=== PATIENT | female | born 2000 | race Caucasian/White ===

== ENCOUNTER 2018-10-14 16:52 | Emergency (ER) | payer MEDICAID ==
[2018-10-14 17:02] VITALS: BP 121/81
[2018-10-14] MEDS ORDERED: HYDROcodone/ACETAMIN 5-325 MG* 1 TAB PO ONE (17:15)
--- NOTE | 2018-10-14 17:18 | UC ---
Abdominal Pain Female HPI - HPI Summary HPI Summary: 17 yo female presents with left flank pain. She tells me that she has had left flank pain for years and that "noone ever found out why". She sees [facility] in [place], [place]. She tells me that she had a CT scan about a month ago and last week went to her PCP for results and was told that she has a 2.0cm cyst on her left kidney. Pt was told that this is the cause of her chronic discomfort. Pt reports that as a child she had kidney stones, but hasn't in many years. No personal hx or fam hx of PCKD. Over the last 2-3 days she has been having increasing pain in her left flank. Today she has a decreased appetite and vomited twice. She has taken 400mg ibuprofen, which usually helps her pain, but it has not today. She denies fever, chills, SOB, chest pain, abdominal pain, diarrhea, dysuria, hematuria, or vaginal complaints. She is currently on her period. She states that this does not feel the same as kidney stones she has had in the past. - History of Current Complaint Chief Complaint: UCGU Stated Complaint: ABD PAIN Time Seen by Provider: 10/14/18 17:07 Hx Obtained From: Patient Hx Last Menstrual Period: [id number] Onset/Duration: Gradual Onset Severity Initially: Moderate Severity Currently: Severe Pain Intensity: 8 Pain Scale Used: 0-10 Numeric Radiates to: Flank Allergies/Adverse Reactions: Allergies Allergy/AdvReac Type Severity Reaction Status Date / Time No Known Allergies Allergy Verified 10/14/18 17:03 Home Medications: Home Medications Ibuprofen TAB* [Motrin TAB* 400 MG] 400 mg PO Q6H PRN 10/14/18 [History Confirmed 10/14/18] Loratadine [Claritin 10 MG CAP] 10 mg PO DAILY 10/14/18 [History Confirmed 10/14] Omeprazole 40 mg PO DAILY 10/14/18 [History Confirmed 10/14/18] PMH/Surg Hx/FS Hx/Imm Hx GI/ History: Gastroesophageal Reflux - Surgical History Surgical History: None - Family History Known Family History: Positive: None - Social History Lives: With Family Alcohol Use: None Substance Use Type: Marijuana Substance Use Comment - Amount & Last Used: 2x/day Smoking Status (MU): Never Smoked Tobacco Review of Systems All Other Systems Reviewed And Are Negative: Yes Constitutional: Positive: Negative Skin: Positive: Negative Respiratory: Positive: Negative Cardiovascular: Positive: Negative Gastrointestinal: Positive: Negative Genitourinary: Positive: Other - Left flank pain Neurovascular: Positive: Negative Neurological: Positive: Negative Psychological: Positive: Negative Physical Exam - Summary Physical Exam Summary: GENERAL: NAD. WDWN. No pain distress. SKIN: No rashes, sores, lesions, or open wounds. NECK: Supple. Nontender. No lymphadenopathy. CHEST: CTAB. No r/r/w. No accessory muscle use. Breathing comfortably and in no distress. CV: RRR. Without m/r/g. Pulses intact. Cap refill <2seconds ABDOMEN: LEFT CVA TTP. Soft. NTTP. No distention or guarding. Bowel sounds present NEURO: Alert. PSYCH: Age appropriate behavior. Triage Information Reviewed: Yes Vital Signs: Initial Vital Signs Temp 98.8 F 10/14/18 16:57 Pulse 91 10/14/18 16:57 Resp 16 10/14/18 16:57 BP 121/81 10/14/18 16:57 Pulse Ox 99 10/14/18 16:57 Laboratory Tests 10/14/18 17:23 POC Urine Color Yellow POC Urine Clarity Clear POC Urine pH 5.5 POC Ur Specif [place] 1.025 POC Urine Protein Trace A POC Ur Glucose (UA) Negative POC Urine Ketones Negative POC Urine Blood 3+ A POC Urine Nitrite Negative POC Urine Bilirubin Negative POC Urine Urobilinogen 0.2 POC U Leukocyte Esteras Negative Vital Signs Reviewed: Yes Abd Pain Female Course/Dx - Course Course Of Treatment: UA with 3+ blood and trace protein. Pt currently on her period. Pt tells me that she has had 3 CTs in her teenage life thus far, therefore I am very hesitant to order another CT for her today and feel this can be appropriately evaluated with an ultrasound. I am unsure the cause of her pain that she attributes to a renal cyst and have no access to the CT report that she had a month or so ago. Her pain is the worst it has ever been and she has never had vomiting associated with her discomfort in the past. The does not have ultrasound available today. For these reasons I advised pt to be further evaluated in the ED. I suspect she will benefit from a kidney US as well as labwork to assess for kidney function. - Differential Dx/Diagnosis Provider Diagnosis: Flank pain, Vomiting Discharge - Sign-Out/Discharge Documenting (check all that apply): Patient Departure All imaging exams completed and their final reports reviewed: No Studies - Discharge Plan Condition: Stable Disposition: HOME-RECOMMEND TO ED Referrals: No Primary Care Phys,NOPCP [Primary Care Provider] - Additional Instructions: Please go to the ER for further evaluation of your flank pain. You were given [place] in the urgent care for your pain. Your urine results did not show any sign of infection. - Billing Disposition and Condition Condition: STABLE Disposition: Home-Recommend to ED
== END 2018-10-14 17:35 | disposition home health service (06) ==
LOC: UCEAST 16:52
DX: R10.9 Unspecified abdominal pain (principal); R11.10 Vomiting, unspecified; K21.9 Gastro-esophageal reflux disease without esophagitis; Z87.442 Personal history of urinary calculi; Z79.899 Other long term (current) drug therapy
CPT/HCPCS: 81003; 84702; 99202; G0463

== ENCOUNTER 2018-10-14 17:53 | Emergency (ER) | payer MEDICAID ==
[2018-10-14 19:54] LABS: ABS Basophils 0.1 10^3/ul (0-0.2); ABS Eosinophils 0.2 10^3/ul (0-0.6); ABS Lymphocytes 3.1 10^3/ul (1.0-4.8); ABS Monocytes 0.7 10^3/ul (0-0.8); ABS Neutrophils 4.2 10^3/ul (1.5-7.7); ABS Nucleated RBC 0 10^3/ul; Eosinophil % 1.9 %; Hematocrit 37 % (33-41); Hemoglobin 12.2 g/dL (12.0-16.0); Mean Corpuscular HGB Conc 33 g/dL (31-36); Mean Corpuscular Hemoglobin 28 pg (27-31); Mean Corpuscular Volume 84 fL (80-97); Mean Platelet Volume 8.3 fL (7.4-10.4); Nucleated Red Blood Cells % 0; Platelet Count 226 10^3/uL (150-450); Red Blood Count 4.34 10^6 /uL (3.70-4.87); Red Cell Distribution Width 14 % (10.5-15); White Blood Count 8.2 10^3/uL (3.5-10.8)
[2018-10-14 20:23] LABS: BUN/Creatinine Ratio 13.8 (8-20); Calcium 8.6 mg/dL (8.6-10.3); EGFR African American 111.8 (>60); EGFR Non-African American 92.4 (>60); Potassium 3.9 mmol/L (3.5-5.0)
[2018-10-14] MEDS ORDERED: Ketorolac INJ* 30 MG/ML 1 ML VIAL IM ONE (20:42)
--- NOTE | 2018-10-14 21:08 | ED ---
GI/ HPI - HPI Summary HPI Summary: 17-year-old female presents with flank pain for the past week. She states she' s has had this pain intermittent for the past year. She states she just found out she has a renal cyst on that side. She denies any family history of renal disease or PCKD. She states that she is currently on her period so can not tell is blood is in her urine. She denies any urgency frequency or dysuria. She has history of kidney stones states that it feels different. Pain does not radiate anywhere. She denies any injury. No chest pain or shortness of breath. No cough. She is not on control. She is a smoker. Denies any pain or swelling in calf muscles. - History of Current Complaint Chief Complaint: EDFlankPain Time Seen by Provider: 10/14/18 20:28 Stated Complaint: CYST ON LEFT KIDNEY IN PAIN PER PT Hx Last Menstrual Period: [id number] Pain Intensity: 8 - Allergy/Home Medications Allergies/Adverse Reactions: Allergies Allergy/AdvReac Type Severity Reaction Status Date / Time No Known Allergies Allergy Verified 10/14/18 18:14 Home Medications: Home Medications Venlafaxine HCl [Effexor XR-] 37.5 mg PO DAILY 10/14/18 [History Confirmed 10/14] PMH/Surg Hx/FS Hx/Imm Hx Endocrine/Hematology History: Denies: Hx Anticoagulant Therapy Respiratory History: Denies: Hx Asthma Infectious Disease History: No Infectious Disease History: Denies: Traveled Outside the [place] in Last 30 Days - Family History Known Family History: Positive: None Negative: Renal Disease - Social History Alcohol Use: None Substance Use Type: Reports: Marijuana Substance Use Comment - Amount & Last Used: 2x/day Smoking Status (MU): Light Every Day Tobacco Smoker Review of Systems Negative: Fever Negative: Chest Pain Negative: Shortness Of Breath Positive: Nausea. Negative: Abdominal Pain, Vomiting, Diarrhea Positive: flank pain. Negative: dysuria All Other Systems Reviewed And Are Negative: Yes Physical Exam Triage Information Reviewed: Yes Vital Signs On Initial Exam: Initial Vitals Temp Pulse Resp BP Pulse Ox 98.5 F 79 16 146/71 98 10/14/18 18:09 10/14/18 18:09 10/14/18 18:09 10/14/18 18:09 10/14/18 18:09 Vital Signs Reviewed: Yes Appearance: Positive: Well-Appearing Skin: Positive: Warm, Dry Head/Face: Positive: Normal Head/Face Inspection Eyes: Positive: Normal, Conjunctiva Clear ENT: Positive: Pharynx normal Respiratory/Lung Sounds: Positive: Clear to Auscultation, Breath Sounds Present Cardiovascular: Positive: Normal, RRR Abdomen Description: Positive: Soft, CVA Tenderness (L). Negative: CVA Tenderness (R) Bowel Sounds: Positive: Present Musculoskeletal: Positive: Normal Neurological: Positive: Normal Psychiatric: Positive: Normal Diagnostics - Vital Signs Vital Signs Temp Pulse Resp BP Pulse Ox 10/14/18 18:09 98.5 F 79 16 146/71 98 - Laboratory Lab Results: Lab Results 10/14/18 10/14/18 Range/Units 19:47 19:47 WBC 8.2 (3.5-10.8) 10^3/uL RBC 4.34 (3.70-4.87) 10^6 /uL Hgb 12.2 (12.0-16.0) g/dL Hct 37 (33-41) % MCV 84 (80-97) fL MCH 28 (27-31) pg MCHC 33 (31-36) g/dL RDW 14 (10.5-15) % Plt Count 226 (150-450) 10^3/uL MPV 8.3 (7.4-10.4) fL Neut % (Auto) 50.6 % Lymph % (Auto) 38.0 % [place] % (Auto) 8.8 % Eos % (Auto) 1.9 % Baso % (Auto) 0.7 % Absolute Neuts (auto) 4.2 (1.5-7.7) 10^3/ul Absolute Lymphs (auto) 3.1 (1.0-4.8) 10^3/ul Absolute Monos (auto) 0.7 (0-0.8) 10^3/ul Absolute Eos (auto) 0.2 (0-0.6) 10^3/ul Absolute Basos (auto) 0.1 (0-0.2) 10^3/ul Absolute Nucleated RBC 0 10^3/ul Nucleated RBC % 0 Sodium 139 (135-145) mmol/L Potassium 3.9 (3.5-5.0) mmol/L Chloride 110 (101-111) mmol/L Carbon Dioxide 25 (22-32) mmol/L Anion Gap 4 (2-11) mmol/L BUN 11 (6-24) mg/dL Creatinine 0.80 (0.51-0.95) mg/dL Est GFR ( Amer) 111.8 (>60) Est GFR (Non-Af Amer) 92.4 (>60) BUN/Creatinine Ratio 13.8 (8-20) Glucose 95 (70-100) mg/dL Calcium 8.6 (8.6-10.3) mg/dL Result Diagrams: 10/14/18 19:47 10/14/18 19:47 Lab Statement: Any lab studies that have been ordered have been reviewed, and results considered in the medical decision making process. - Ultrasound No standard instances Ultrasound Interpretation Completed By: Radiologist Summary of Ultrasound Findings: IMPRESSION: No stones or hydronephrosis of left kidney. Small simple cyst noted. Re-Evaluation - Re-Evaluation First Eval Re-Evaluation Time: 22:08 Change: Improved Comment: feeling better after toradol GIGU Course/Dx - Course Course Of Treatment: 17-year-old female presents with flank pain for the past week. She states she's has had this pain intermittent for the past year. She states she just found out she has a renal cyst on that side. She denies any family history of renal disease or PCKD. She states that she is currently on her period so can not tell is blood is in her urine. She denies any urgency frequency or dysuria. She has history of kidney stones states that it feels different. Pain does not radiate anywhere. She denies any injury. No chest pain or shortness of breath. No cough. She is not on control. She is a smoker. Denies any pain or swelling in calf muscles. On exam tenderness over left flank. Lungs clear auscultation. wbc normal. Renal function normal. Urine likely contaminant. Renal ultrasound shows small simple cyst. Patient primary referring to a specialist and she is waiting for the specialist to call back so can follow up with them. told to take tyenlol or ibuprofen. patient understand and agrees with plan. - Diagnoses Differential Diagnoses - Female: Urinary Tract Infection, Ureteral Calculi, Other - renal cyst Provider Diagnoses: Renal cyst Discharge - Sign-Out/Discharge Documenting (check all that apply): Patient Departure Patient Received Moderate/Deep Sedation with Procedure: No - Discharge Plan Condition: Good Disposition: HOME Patient Education Materials: Kidney Cyst (ED) Referrals: No Primary Care Phys,NOPCP [Primary Care Provider] - Additional Instructions: Follow up with primary Take tyenlol or ibuprofen every 6 hours as needed for pain can apply ice or heat to area Return to ED if develop any fever or any new or worsening symptoms - Billing Disposition and Condition Condition: GOOD Disposition: Home
[2018-10-14 21:46] LABS: Urine Appearance Cloudy; Urine Bacteria Absent (Absent); Urine Bilirubin Negative (Negative); Urine Blood 3+ (Negative); Urine Color Yellow; Urine Glucose Negative (Negative); Urine Ketones Negative (Negative); Urine Nitrite Negative (Negative); Urine Protein Negative (Negative); Urine Red Blood Cell 3+(>10/hpf) (Absent); Urine Specific Gravity 1.023 (1.010-1.030); Urine Squamous Epithelial Cell Present (Absent); Urine Urobilinogen Negative (Negative); Urine White Blood Cell Trace(0-5/hpf) (Absent)
[2018-10-14 22:29] VITALS: BP 128/77
== END 2018-10-14 22:29 | disposition home or self-care (01) ==
LOC: ED 17:53
DX: N28.1 Cyst of kidney, acquired (principal); R11.0 Nausea; Z87.442 Personal history of urinary calculi; F17.200 Nicotine dependence, unspecified, uncomplicated
CPT/HCPCS: 36415; 76775; 80048; 81003; 81015; 85025; 87086; 96372; 99282; J1885

== ENCOUNTER 2018-11-30 13:25 | Emergency (ER) | payer MEDICAID, OTHER ==
[2018-11-30 13:34] VITALS: BP 118/70
[2018-11-30] MEDS ORDERED: Ketorolac INJ* 60 MG/2 ML VIAL IM ONE (13:52)
--- NOTE | 2018-11-30 13:54 | UC ---
Back Pain HPI - HPI Summary HPI Summary: 18 yo female presents with continued left flank pain. I saw her for this same issue about 2 months ago. She went to the ED at that time for a renal US that revealed a simple small kidney cyst. She was given norco and toradol and pain resolved and she felt better for awhile, but the pain is now back. She has not been able to see a video game technician, but has an appointment with one scheduled for next month. Currently she has left flank pain at her left kidney and into left lower back. She denies abdominal pain, n/v, dysuria, hematuria. - History of Current Complaint Chief Complaint: UCGU Stated Complaint: LEFT FLANK PAIN Time Seen by Provider: 11/30/18 13:48 Hx Last Menstrual Period: 11/12/18 Onset/Duration: Gradual Onset Timing: Constant Severity Initially: Moderate Severity Currently: Severe Pain Intensity: 10 Pain Scale Used: 0-10 Numeric - Allergies/Home Medications Allergies/Adverse Reactions: Allergies Allergy/AdvReac Type Severity Reaction Status Date / Time No Known Allergies Allergy Verified 11/30/18 13:35 PMH/Surg Hx/FS Hx/Imm Hx - Additional Past Medical History Additional PMH: Kidney cyst GI/ History: Gastroesophageal Reflux Psychological History: Anxiety, Depression Other History Of: Negative For: Anticoagulant Therapy - Surgical History Surgical History: None - Family History Known Family History: Positive: None Negative: Renal Disease - Social History Occupation: Unemployed Lives: With Family Alcohol Use: None Substance Use Type: Marijuana Substance Use Comment - Amount & Last Used: 2x/day Smoking Status (MU): Light Every Day Tobacco Smoker Review of Systems All Other Systems Reviewed And Are Negative: Yes Constitutional: Positive: Negative Skin: Positive: Negative Respiratory: Positive: Negative Cardiovascular: Positive: Negative Gastrointestinal: Positive: Negative Genitourinary: Positive: Negative Musculoskeletal: Positive: Other: - Left flank pain Neurological: Positive: Negative Psychological: Positive: Negative Physical Exam - Summary Physical Exam Summary: GENERAL: NAD. WDWN. No pain distress. SKIN: No rashes, sores, lesions, or open wounds. NECK: Supple. Nontender. No lymphadenopathy. CHEST: CTAB. No r/r/w. No accessory muscle use. Breathing comfortably and in no distress. CV: RRR. Without m/r/g. Pulses intact. Cap refill <2seconds ABDOMEN: Left CVA TTP. Soft. NTTP. No distention or guarding. Bowel sounds present MSK: Left flank and left lower back mild TTP - reproduced with truncal twisting and flexion of spine. Negative SLR b/l. NEURO: Alert. PSYCH: Age appropriate behavior. Triage Information Reviewed: Yes Vital Signs: Initial Vital Signs Temp 98 F 11/30/18 13:32 Pulse 82 11/30/18 13:32 Resp 16 11/30/18 13:32 BP 118/70 11/30/18 13:32 Pulse Ox 100 11/30/18 13:32 Laboratory Tests 11/30/18 11/30/18 13:43 13:45 POC Urine Color Yellow POC Urine Clarity Clear POC Urine pH 7.0 POC Ur Specif [place] 1.015 POC Urine Protein Negative POC Ur Glucose (UA) Negative POC Urine Ketones Negative POC Urine Blood Negative POC Urine Nitrite Negative POC Urine Bilirubin Negative POC Urine Urobilinogen 0.2 POC U Leukocyte Esteras Negative POC Ur Test Negative Vital Signs Reviewed: Yes Back Pain Course/Dx - Course Course Of Treatment: Discussed with pt that I do not suspect her pain is truly from this simple kidney cyst and seems more MSK in nature. I recommended physical therapy and referral to a spine clinic, but pt prefers to see her video game technician next month as she believes it is kidney related. Therefore, she was given toradol IM in the clinic and will rx for a short supply of norco for use during severe pain episodes. istop: Reference #: [id number] - Differential Dx/Diagnosis Provider Diagnosis: Left flank pain Discharge - Sign-Out/Discharge Documenting (check all that apply): Patient Departure All imaging exams completed and their final reports reviewed: No Studies - Discharge Plan Condition: Stable Disposition: HOME Prescriptions: HYDROcodone/ACETAMIN 5-325 MG* [[place] 5-325 TAB*] 1 tab PO Q8H PRN #9 tab MDD 3 PRN Reason: Pain Patient Education Materials: Flank Pain (ED) Referrals: Ellie Coleman NP [Primary Care Provider] - Additional Instructions: If you develop a fever, shortness of breath, chest pain, new or worsening symptoms - please call your PCP or go to the ED immediately. Please keep your appointment with your specialist for next month for further evaluation of your kidney pain - Billing Disposition and Condition Condition: STABLE Disposition: Home
== END 2018-11-30 14:05 | disposition home or self-care (01) ==
LOC: SUPCPDRO 13:25 → UCEAST 13:25
DX: M54.5 Low back pain (principal); N28.1 Cyst of kidney, acquired; Z32.02 Encounter for pregnancy test, result negative; K21.9 Gastro-esophageal reflux disease without esophagitis; F41.9 Anxiety disorder, unspecified; F32.9 Major depressive disorder, single episode, unspecified; F17.200 Nicotine dependence, unspecified, uncomplicated
CPT/HCPCS: 81003; 84702; 96372; 99212; G0463; J1885

== ENCOUNTER 2019-01-25 18:29 | Emergency (ER) | payer OTHER ==
[2019-01-25 18:45] VITALS: BP 122/76
[2019-01-25] MEDS ORDERED: Lidocaine 2% VISCOUS* 15 ML UDC PO ONE (19:52)
[2019-01-25] MEDS ORDERED: Al Hydrox/Mg Hydrox/Simet LIQ* 30 ML UDC PO ONE (19:53)
--- NOTE | 2019-01-25 20:47 | UC ---
Abdominal Pain Female HPI - HPI Summary HPI Summary: PATIENT COMPLAINING OF 2 WEEKS OF OVERALL FATIGUE. HAS MID ABDOMINAL/ EPIGASTRIC SHARP PAIN WITH INTERMITTENT NAUSEA. DOES HAVE A HISTORY OF SOME REFLUX AND HAS BEEN TAKING OMEPRAZOLE WITHOUT MUCH RELIEF. ALSO COMPLAINS OF BACK PAIN. DENIES ANY URINARY SYMPTOMS. IS NOT CONCERNED ABOUT STD. NO FEVER. - History of Current Complaint Chief Complaint: UCGeneralIllness Stated Complaint: COUGH Time Seen by Provider: 01/25/19 18:47 Hx Obtained From: Patient Hx Last Menstrual Period: [id number] Onset/Duration: Gradual Onset, Lasting Weeks, Still Present Timing: Constant Severity Initially: Moderate Severity Currently: Moderate Pain Intensity: 7 Pain Scale Used: 0-10 Numeric Location: Epigastric Radiates: Yes Radiates to: Back Character: Sharp Aggravating Factor(s): Nothing Alleviating Factor(s): Nothing Associated Signs and Symptoms: Positive: Back Pain, Decreased Appetite, Nausea. Negative: Diaphoresis, Fever, Urinary Symptoms, Vaginal Discharge, Vomiting, Diarrhea Allergies/Adverse Reactions: Allergies Allergy/AdvReac Type Severity Reaction Status Date / Time No Known Allergies Allergy Verified 01/25/19 18:45 PMH/Surg Hx/FS Hx/Imm Hx GI/ History: Gastroesophageal Reflux Other History Of: Negative For: Anticoagulant Therapy - Surgical History Surgical History: None - Family History Known Family History: Positive: None Negative: Renal Disease - Social History Alcohol Use: None Substance Use Type: Marijuana Substance Use Comment - Amount & Last Used: 2x/day Smoking Status (MU): Light Every Day Tobacco Smoker Review of Systems All Other Systems Reviewed And Are Negative: Yes Constitutional: Positive: Fatigue ENT: Positive: Negative Respiratory: Positive: Cough Cardiovascular: Positive: Negative Gastrointestinal: Positive: Abdominal Pain, Nausea Genitourinary: Positive: Negative Physical Exam Triage Information Reviewed: Yes Appearance: Well-Appearing, No Pain Distress, Well-Nourished Vital Signs: Initial Vital Signs Temp 95.7 F 01/25/19 18:39 Pulse 89 01/25/19 18:39 Resp 20 01/25/19 18:39 BP 122/76 01/25/19 18:39 Pulse Ox 98 01/25/19 18:39 Laboratory Tests 01/25/19 01/25/19 19:20 19:25 POC Urine Color Yellow POC Urine Clarity Clear POC Urine pH 7.0 POC Ur Specif [place] 1.020 POC Urine Protein Negative POC Ur Glucose (UA) Negative POC Urine Ketones Negative POC Urine Blood Negative POC Urine Nitrite Negative POC Urine Bilirubin Negative POC Urine Urobilinogen 0.2 POC U Leukocyte Esteras Negative POC Ur Test Negative Vital Signs Reviewed: Yes Eyes: Positive: Conjunctiva Clear ENT: Positive: Hearing grossly normal, Pharynx normal, TMs normal Neck: Positive: Supple, Nontender, No Lymphadenopathy Respiratory Exam: Normal Cardiovascular Exam: Normal Abdomen Description: Positive: Soft, Other: - MILD DIFFUSE TENDERNESS. NO RIGIDITY OR REBOUND. Negative: CVA Tenderness (R), CVA Tenderness (L), Distended, Guarding Bowel Sounds: Positive: Present Musculoskeletal: Positive: No Edema Neurological: Positive: Alert Psychological: Positive: Age Appropriate Behavior Skin: Negative: Rashes Re-Evaluation - Re-Evaluation First Eval Re-Evaluation Time: 20:35 - FEELS IMPROVED AFTER GI COCKTAIL Change: Improved Abd Pain Female Course/Dx - Course Course Of Treatment: URINE DIP AND URINE HCG NEGATIVE. PATIENT FELT BETTER AFTER A GI COCKTAIL. HAVE ADVISED PATIENT TO SWITCH HER PPI TO NEXIUM TO SEE IF THIS IS MORE EFFECTIVE. CALL [facility] FOR A FOLLOW-UP APPOINTMENT. FOLLOW [facility]. LABS DRAWN TODAY INCLUDED CBC, CMP, TSH, LIPASE. - Differential Dx/Diagnosis Provider Diagnosis: Gastritis Discharge - Sign-Out/Discharge Documenting (check all that apply): Patient Departure All imaging exams completed and their final reports reviewed: No Studies - Discharge Plan Condition: Stable Disposition: HOME Prescriptions: Esomeprazole(NF) [NexIUM(NF)] 40 mg PO DAILY #30 cap Patient Education Materials: Gastritis (ED) Referrals: [facility] [Outside] - 1 Week Ellie Coleman NP [Primary Care Provider] - 1 Week Additional Instructions: YOU FELT BETTER AFTER A GI COCKTAIL. THIS INDICATES THE YOUR SYMPTOMS MAY BE DUE TO A GASTRITIS/REFLUX. TRY CHANGING YOUR PPI FROM PRILOSEC TO NEXIUM. TAKE THE MEDICINE IN THE MORNING (IDEALLY AT LEAST 30 MINUTES BEFORE YOU EAT). EAT SLOWLY. STAY UPRIGHT AT LEAST 30 MINUTES AFTER EATING. EAT SMALLER, MORE FREQUENT MEALS OPPOSED TO LARGE INFREQUENT MEALS. AVOID POSSIBLE TRIGGER FOODSGREASY, SPICY, ACIDIC FOODS. CAFFEINE, ALCOHOL. CALL GI TOMORROW TO SCHEDULE FOLLOW-UP APPOINTMENT FOR FURTHER EVALUATION. [facility] Address: [address], [place] [address] URINE TESTING TODAY UNREMARKABLE. BLOOD DRAWN TO EVALUATE YOUR BLOOD COUNT, METABOLIC PANEL AND THYROID. WE WILL CALL YOU WITH ANY ABNORMAL RESULTS. CALL THE NUMBER BELOW FOR ASSISTANCE IN ESTABLISHING WITH A PCP An additional resource available to assist in finding the appropriate physician for your health care needs is the [facility] ([facility]). You may contact them by calling [phone]. - Billing Disposition and Condition Condition: STABLE Disposition: Home
[2019-01-26 11:36] LABS: ABS Basophils 0.1 10^3/ul (0-0.2); ABS Eosinophils 0.1 10^3/ul (0-0.6); ABS Lymphocytes 3.2 10^3/ul (1.0-4.8); ABS Monocytes 0.8 10^3/ul (0-0.8); Eosinophil % 1.3 %; Hematocrit 41 % (35-47); Hemoglobin 13.8 g/dL (12.0-16.0); Lymphocyte % 31.2 %; Mean Corpuscular HGB Conc 34 g/dL (31-36); Mean Corpuscular Hemoglobin 28 pg (27-31); Mean Corpuscular Volume 84 fL (80-97); Mean Platelet Volume 9.4 fL (7.4-10.4); Nucleated Red Blood Cells % 0.1; Platelet Count 296 10^3/uL (150-450); Red Blood Count 4.86 10^6 /uL (3.70-4.87); Red Cell Distribution Width 14 % (10-15); White Blood Count 10.2 10^3/uL (3.5-10.8)
[2019-01-26 19:29] LABS: Albumin 4.2 g/dL (3.2-5.2); Calcium 9.4 mg/dL (8.6-10.3); Potassium 3.9 mmol/L (3.5-5.0); Total Bilirubin 0.2 mg/dL (0.2-1.0)
[2019-01-26 19:35] LABS: Albumin/Globulin Ratio 1.6 (1-3); BUN/Creatinine Ratio 17.1 (8-20); EGFR African American 117.4 (>60); Globulin 2.6 g/dL (2-4); Total Protein 6.8 g/dL (6.4-8.9)
[2019-01-26 19:50] LABS: TSH (Thyroid Stimulating Horm) 1.37 mcIU/mL (0.34-5.60)
== END 2019-01-25 21:02 | disposition home or self-care (01) ==
LOC: UCEAST 18:29
DX: K29.70 Gastritis, unspecified, without bleeding (principal); R53.83 Other fatigue; F17.210 Nicotine dependence, cigarettes, uncomplicated
CPT/HCPCS: 36415; 80053; 81003; 83690; 84443; 84702; 85025; 99212; A9270-GY; G0463

== ENCOUNTER 2019-03-12 10:30 | Emergency (ER) | payer OTHER ==
[2019-03-12 10:47] VITALS: BP 133/74
--- NOTE | 2019-03-12 11:58 | UC ---
Headache HPI - HPI Summary HPI Summary: Nausea and intermittent headaches over the past 2 weeks. Pt gets frequent headaches, and these have not been as bad as she has had in the past. She is sexually active. She has her menses now but it is board catcher than usual. She is not on control. - History Of Current Complaint Chief Complaint: UCGeneralIllness Stated Complaint: NAUSEA, AND HEADACHES Time Seen by Provider: 03/12/19 11:58 Hx Obtained From: Patient Hx Last Menstrual Period: 03/10/19 Onset/Duration: Gradual Onset Onset Of Symptoms: Gradual, Resolved Initially Headache Was: Mild Currently Pain Is: Mild Pain Intensity: 6 Timing: Intermittent, Lasting: - Has had for 2 weeks intermittently Character: Typical Headache Location of Headache: Diffuse Aggravating Factor(s): Nothing Allevating Factor(s): Rest, Medication Associated Signs And Symptoms: Positive: Nausea, Vomiting - Stated she has vomited twice in the past 2 weeks - Allergies/Home Medications Allergies/Adverse Reactions: Allergies Allergy/AdvReac Type Severity Reaction Status Date / Time No Known Allergies Allergy Verified 03/12/19 10:48 PMH/Surg Hx/FS Hx/Imm Hx Previously Healthy: Yes Other History Of: Negative For: Anticoagulant Therapy - Surgical History Surgical History: None - Family History Known Family History: Positive: None Negative: Renal Disease - Social History Alcohol Use: None Substance Use Type: Marijuana Substance Use Comment - Amount & Last Used: 2x/day Smoking Status (MU): Light Every Day Tobacco Smoker Review of Systems All Other Systems Reviewed And Are Negative: Yes ENT: Positive: Nasal Discharge, Sinus Congestion Genitourinary: Positive: Negative Is Patient Immunocompromised?: No Physical Exam Triage Information Reviewed: Yes Appearance: Well-Appearing, No Pain Distress, Well-Nourished Vital Signs: Initial Vital Signs Temp 98 F 03/12/19 10:44 Pulse 74 03/12/19 10:44 Resp 17 03/12/19 10:44 BP 133/74 03/12/19 10:44 Pulse Ox 99 03/12/19 10:44 Vital Signs Reviewed: Yes Eyes: Positive: Conjunctiva Clear ENT: Positive: Pharynx normal, TM red - Right TM with erythema, poor lanmdmarks and light reflex. Neck: Positive: Supple, Nontender, No Lymphadenopathy Respiratory: Positive: Lungs clear, Normal breath sounds, No respiratory distress, No accessory muscle use Cardiovascular: Positive: RRR, No Murmur, Pulses Normal, Brisk Capillary Refill Abdomen Description: Positive: Nontender, No Organomegaly, Soft. Negative: CVA Tenderness (R), CVA Tenderness (L), Distended, Guarding, Hepatomegaly, Splenomegaly Bowel Sounds: Positive: Present Musculoskeletal Exam: Normal Neurological Exam: Normal Psychological Exam: Normal Skin Exam: Normal Headache Course/Dx - Course Course Of Treatment: Pt comfortable here. test negative. Will treat for Otitis media. - Differential Dx/Diagnosis Provider Diagnosis: Right otitis media Discharge - Sign-Out/Discharge Documenting (check all that apply): Patient Departure All imaging exams completed and their final reports reviewed: No Studies - Discharge Plan Condition: Fair Disposition: HOME Prescriptions: Amoxicillin PO (*) [Amoxicillin 875 MG (*)] 875 mg PO BID 10 Days #20 tab Patient Education Materials: Ear Infection (ED) Forms: *Work Release Referrals: Ellie Coleman NP [Primary Care Provider] - Additional Instructions: Increase fluids, rest, follow up with your primary care doctor in 4-5 days if no improvement. - Billing Disposition and Condition Condition: FAIR Disposition: Home
== END 2019-03-12 13:00 | disposition home or self-care (01) ==
LOC: UCEAST 10:30
DX: H66.91 Otitis media, unspecified, right ear (principal); F17.210 Nicotine dependence, cigarettes, uncomplicated
CPT/HCPCS: 81025; 99212; G0463

== ENCOUNTER 2019-04-15 20:30 | Emergency (ER) | payer OTHER ==
--- OUTSIDE RECORDS SUMMARY | 2019-04-15 20:36 | XMS REPORT | Summary of Care ---
:2000 Author Organization [facility] Address [address] [facility] [place] [address] Care Team Providers Name Role Phone None, [place] Primary Care Provider Unavailable Reason for Visit Reason Comments Concussion Flank Pain left Encounter Details Date Type Department Care Team Description 03/22/2019 - Emergency [facility] Leroy Triana MD Emergency 03/23/2019 Emergency Department 1 [facility] [address] [place], [place] [id number] [place], [place] [id number] [phone] Allergies No Known Allergiesdocumented as of this encounter (statuses as of 03/24/2019) Medications Medication Sig Dispensed Refills Start Date End Date Status polyethylene glycol Take 17 g by 850 g 1 09/16/2015 Active (MIRALAX) Oral mouth TWICE PowderIndications: DAILY. Other constipation Sennosides (EX-LAX) Take by 0 Active 15 MG Oral Tab mouth. Melatonin 5 MG Oral Take 1 Tab 30 Tab 5 01/05/2018 Active TabIndications: by mouth Insomnia, unspecified EVERY type BEDTIME NEEDED (sleep). sumatriptan (IMITREX) Take 1 Tab 9 Tab 5 04/12/2018 Active 100 MG Oral Tab by mouth ONCE NEEDED (as needed) for up to 1 dose. fluticasone (FLONASE) [place] 4 6 Bottle 3 08/31/2018 Active 50 MCG/ACT Nasal Sprays in SuspensionIndications nose DAILY. : Viral URI with cough saline (OCEAN NASAL [place] 1 2 Each 0 08/31/2018 Active SPRAY) 0.65 % Nasal [place] in SolutionIndications: nose THREE Viral URI with cough TIMES DAILY NEEDED (congestion) . naproxen (NAPROSYN) Take 1 Tab 60 Tab 5 09/08/2018 Active 500 MG Oral by mouth TWO TabIndications: Acute TIMES DAILY bilateral low back NEEDED pain without sciatica (pain). with food cyclobenzaprine Take 1 Tab 45 Tab 3 09/08/2018 Active (FLEXERIL) 10 MG Oral by mouth TabIndications: Acute THREE TIMES bilateral low back DAILY pain without sciatica NEEDED (pain). ondansetron (ZOFRAN Take 1 Tab 12 Tab 0 09/18/2018 Active ODT) 4 MG Oral TABLET by mouth DISPERSIBLE EVERY EIGHT HOURS NEEDED (nausea). Omeprazole 40 MG Oral Take 1 Cap 30 Cap 5 10/06/2018 Active CAPSULE DELAYED by mouth RELEASEIndications: DAILY. Gastroesophageal reflux disease without esophagitis cetirizine (ZYRTEC) Take 1 Tab 30 Tab 5 10/06/2018 Active 10 MG Oral by mouth TabIndications: DAILY. Seasonal allergic rhinitis, unspecified trigger venlafaxine (EFFEXOR Take 1 Cap 30 Cap 5 10/06/2018 Active XR) 37.5 MG Oral by mouth CAPSULE SR 24 DAILY. HRIndications: Anxiety Norgestimate-Ethinyl Take 1 Tab 84 Tab 3 06/05/2018 03/22/20 Discontinued Estradiol by mouth 19 (Error) (TRI-SPRINTEC) DAILY. 0.18/0.215/0.25 MG-35 MCG Oral TabIndications: Encounter for initial prescription of contraceptive pills documented as of this encounter (statuses as of 03/24/2019) Active Problems Problem Noted Date Seasonal allergies 12/28/2008 TACHYCARDIA--Sinoatrial Node Dysfunction 01/09/2008 documented as of this encounter (statuses as of 03/24/2019) Immunizations Name Administration Dates Next Due DTAP Vaccine 05/04/2004, 04/20/2000, 04/24/1999, 03/02/1999, 01/02/1999 DTAP/HIB Combined Vaccine 05/04/1999, 03/02/1999, 01/02/1999 HIB 4 Dose Schedule 04/20/2000, 05/04/1999, 03/02/1999, 01/02/1999 Hepatitis A Vaccine Peds 03/12/2011, 05/19/2007 Hepatitis B Vaccine Peds 05/04/1999, 1998, 1998 Human Papillomavirus 12/02/2017, 06/21/2016, 05/10/2016 Influenza (IM) Preservative Free 05/16/2012 MENINGOCOCCAL CONJUGATE VACCINE 05/10/2016, 02/02/2012 MMR VACCINE 05/04/2004, 11/26/1999 Pneumococcal Conjugate Vaccine 05/02/2002 Polio - Inactivated Vaccine 05/04/2004, 11/26/1999, 03/02/1999, 01/02/1999 TDAP Vaccine 03/12/2011 Varicella Vaccine Live 03/12/2011, 11/26/1999 documented as of this encounter Social History Tobacco Use Types Packs/Day Years Used Date Current Every Day Smoker Cigarettes 0.25 Smokeless Tobacco: Never Used Alcohol Use Drinks/Week oz/Week Comments No Sex Assigned at Date Recorded Not on file Job Start Date Occupation Industry Not on file Not on file Not on file Travel History Travel Start Travel End No recent travel history available. documented as of this encounter Last Filed Vital Signs Vital Sign Reading Time Taken Comments Blood Pressure 104/79 03/23/2019 1:45 AM EDT Pulse 80 03/23/2019 1:45 AM EDT Temperature 35.8 03/22/2019 10:25 PM EDT C (96.4 F) Respiratory Rate 18 03/23/2019 1:45 AM EDT Oxygen Saturation 99% 03/23/2019 1:45 AM EDT Inhaled Oxygen Concentration - - Weight - - Height - - Body Mass Index - - documented in this encounter Discharge Instructions InstructionsMoLeroy waite MD - 03/23/2019Your bloodwork and urine tests were normal. If you feel worse or develop new symptoms please return to ED for re eval. Tylenol for pain documented in this encounter Plan of Treatment Health Maintenance Due Date Last Done Comments CHLAMYDIA SCREENING 2000 PNEUMOCOCCAL 0-64 YRS (1 of 2004 05/02/2002 1 - PPSV23) INFLUENZA VACCINE (#1) 2019 05/16/2012 DEPRESSION SCREENING 10/07/2019 10/06/2018 MENINGOCOCCAL VACCINE IMM Completed 05/10/2016, 02/02/2012 HPV IMMUNIZATION SERIES Addressed 12/02/2017, 12/16/2016 Overridden with the (Postponed), 06/21/2016, intention of not Additional history completing the topic exists documented as of this encounter Goals Goal Patient Goal Associated Recent Patient-Stated? Author Type Problems Progress Work with your General Debbie Coleman [employer] PAULO Argueta Note: This is an individualized treatment (frequent ED use) goal for Elizabeth Valle: Please work with your [employer], who will assist you in meeting your goals of care. Regular appointments with primary care Lifestyle Ellie Delcid FNP-C provider (PCP) Note: This is an individualized lifestyle goal for Elizabeth Valle: Please schedule regular visits with your primary care provider (PCP). Care provided in your PCP's office can help reduce your need for additional trips to the Emergency Room. Take all prescribed medications as Self-management Ellie Delcid FNP-C directed Note: This is an individualized self-management goal for Elizabeth Valle: Please take all prescribed medications as directed. 1. Do not skip doses. If you cannot afford your medications, talk with your doctor. 2. Use a pill reminder system such as a pill box if needed. Your pharmacist can help you with this. 3. Contact your Pharmacy 5 days before your medication runs out. If you cannot take your medications for any reasons, talk with your doctor. 4. Please bring all of your medication bottles and inhalers (or a list of all your medications/inhalers) with you to every visit. Potential barriers to meeting all of your care plan goals will continue to be addressed on an ongoing basis. documented as of this encounter Procedures Procedure Name Priority Date/Time Associated Comments Diagnosis URINALYSIS (LAB) WITH STAT 03/22/2019 11:49 Results for this REFLEX CULTURE PM EDT procedure are in the results section. CBC WITH DIFFERENTIAL STAT 03/22/2019 11:13 Results for this PM EDT procedure are in the results section. HCG QUALITATIVE SERUM STAT 03/22/2019 11:13 Results for this PM EDT procedure are in the results section. BASIC METABOLIC PANEL STAT 03/22/2019 11:13 Results for this PM EDT procedure are in the results section. documented in this encounter Results URINALYSIS (LAB) WITH REFLEX CULTURE (03/22/2019 11:49 PM EDT) Urine Color Yellow Yellow [facility] Urine Appearance Cloudy (A) Clear [facility] Urine Glucose Negative Negative mg/dl [facility] Urine Bilirubin Negative Negative [facility] Urine Ketones Negative Negative [facility] Urine Specific 1.020 1.005 - 1.030 [facility] [place] [facility] Urine Blood Negative Negative [facility] Urine Ph 6.0 5.0 - 8.0 [facility] Urine Protein Negative Negative mg/dl [facility] Urine Urobilinogen 0.2 0.2 - 1.0 [facility] Urine Nitrite Negative Negative [facility] Urine Leukocytes Negative Negative [facility] Specimen Urine Performing Organization Address [facility] [place] Phone Number [facility] [address] [place] [address] HCG QUALITATIVE SERUM (03/22/2019 11:13 PM EDT) Hcg Qualitative Serum Negative Negative [facility] Specimen Blood Performing Organization Address [facility] [place] [facility] Phone Number [address] [address] BASIC METABOLIC PANEL (03/22/2019 11:13 PM EDT) Glucose 93 70 - 99 mg/dl [facility] BUN 12 7 - 17 mg/dl [facility] Creatinine 1.0 0.7 - 1.2 mg/dl [facility] Sodium 141 134 - 145 mmol/L [facility] Potassium 3.8 3.5 - 5.1 mmol/L [facility] Chloride 105 98 - 107 mmol/L [facility] CO2 26 22 - 30 mmol/L [facility] Calcium 8.9 8.3 - 10.1 mg/dl [facility] eGFR >60 See Interpretation [place] Comment: Below ml/min/1.73ml [facility] Estimated GFR Interpretation: Above 60ml/min/1.73m2 = Normal Renal Function 30-59 ml/min/1.73m2 = Stage 3 Chronic Kidney Disease 15-29 ml/min/1.73m2 = Stage 4 Chronic Kidney Disease Less than 15 ml/min/1.73m2 = Stage 5 Chronic Kidney Disease The GFR value is calculated using the Modification of Diet in Renal Disease ( MDRD) Study Equation which can be found at: https://www.kidney.org/content/puhd-beruj-hexjxbfe BUN/Creatinine 12 6 - 22 [facility] Anion Gap 10 3 - 11 mmol/L [facility] Specimen Blood Performing Organization Address [facility]/State/Zipcode Phone Number [facility] [address] [place] [address] CBC WITH DIFFERENTIAL (03/22/2019 11:13 PM EDT) WBC Count 9.24 3.98 - 10.04 K/uL [facility] RBC Count 4.91 3.93 - 5.22 M/UL [facility] Hemoglobin 13.8 11.2 - 15.7 g/dL [facility] Hematocrit 42.3 34.1 - 44.9 % [facility] MCV 86.2 79.4 - 94.8 FL [facility] MCH 28.1 25.6 - 32.2 PG [facility] MCHC 32.6 32.2 - 35.5 g/dL [facility] Platelet Count 281 182 - 369 K/uL [facility] MPV 10.4 9.4 - 12.3 FL [facility] RDW 13.6 11.7 - 14.4 % [facility] Neutrophil % 58.5 34.0 - 71.1 % [facility] Lymphocyte % 34.7 19.3 - 51.7 % [facility] Monocyte % 5.2 4.7 - 12.5 % [facility] Eosinophil % 1.1 0.7 - 5.8 % [facility] Basophil % 0.3 0.1 - 1.2 % [facility] Neutrophil # 5.40 1.56 - 6.13 K/UL [facility] Lymphocyte # 3.21 1.18 - 3.74 K/UL [facility] Monocyte # 0.48 0.24 - 0.86 K/UL [facility] Eosinophil # 0.10 0.04 - 0.36 K/UL [facility] Basophil # 0.03 0.01 - 0.08 K/UL [facility] Immature Gran % 0.2 0.0 - 0.4 % [facility] Immature Gran # 0.02 0.00 - 0.03 K/uL [facility] Specimen Blood Performing Organization Address City/State/Zipcode Phone Number [facility] [address] [place] [address] documented in this encounter Visit Diagnoses Diagnosis Acute left flank pain - Primary Abdominal pain, unspecified site Chronic nonintractable headache, unspecified headache type documented in this encounter (Work) [id number] documented as of this encounter
[2019-04-15 20:39] VITALS: BP 121/67
--- NOTE | 2019-04-15 20:41 | UC ---
Complaint Female HPI - HPI Summary HPI Summary: 18 yo with one week hx of malaise, cough, mild respiratory symptoms, without fever. She has low back ache and bladder pressure, urinary frequency and urgency. She has low back ache, malaise, sleep disruption, and episodes of emesis. Urine is negative. Not using contraception. Hx of reflux and takes nexium daily for the past 4 months. No fever or chills. + dysuria, might have some vaginal discharge, declines STI testing but would like screen for BV and yeast. 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 Hx Last Menstrual Period: 04/06/19 Onset/Duration: Gradual Onset, Lasting Days - 7 or 8, Resolved Timing: Intermittent Severity Initially: Mild Severity Currently: Moderate Pain Intensity: 0 - Allergies/Home Medications Allergies/Adverse Reactions: Allergies Allergy/AdvReac Type Severity Reaction Status Date / Time No Known Allergies Allergy Verified 04/15/19 20:39 Home Medications: Home Medications Iron 04/15/19 [History Confirmed 04/15/19] PMH/Surg Hx/FS Hx/Imm Hx - Additional Past Medical History Additional PMH: overweight. History of iron deficiency anemia. GI/ History: Gastroesophageal Reflux Psychological History: Anxiety, Other - chronic insomnia Other History Of: Negative For: Anticoagulant Therapy - Surgical History Surgical History: None - Family History Known Family History: Positive: Hypertension - GF, Diabetes - GF - Social History Occupation: Unemployed Lives: With Family - with her partner. Alcohol Use: None Substance Use Type: Marijuana Substance Use Comment - Amount & Last Used: 2x/day Smoking Status (MU): Current Every Day Smoker Type: Cigarettes Amount Used/How Often: 4 cig/day Review of Systems All Other Systems Reviewed And Are Negative: Yes Constitutional: Positive: Fatigue Eyes: Positive: Negative ENT: Positive: Nasal Discharge Respiratory: Positive: Cough - occasional Gastrointestinal: Positive: Abdominal Pain - migrates darlin-umbilical to suprapubic. Genitourinary: Positive: Dysuria, Frequency, Urgency Motor: Positive: Negative Neurovascular: Positive: Negative Physical Exam Triage Information Reviewed: Yes Appearance: Well-Appearing, Pain Distress - mild, Obese Vital Signs: Initial Vital Signs Temp 96.3 F 04/15/19 20:36 Pulse 67 04/15/19 20:36 Resp 16 04/15/19 20:36 BP 121/67 04/15/19 20:36 Pulse Ox 100 04/15/19 20:36 Eyes: Positive: Conjunctiva Clear ENT: Positive: Pharynx normal, TMs normal Neck: Positive: Supple, Nontender, No Lymphadenopathy Respiratory: Positive: Lungs clear, Normal breath sounds Cardiovascular: Positive: RRR, No Murmur Abdomen Description: Positive: Soft, Other: - mild tenderness without guarding or rebound, in periumbilical area.. Negative: CVA Tenderness (R), CVA Tenderness (L), Distended, Guarding, Splenomegaly Pelvic Exam: Positive: Other - opted to self collect vaginal swab Neurological: Positive: Alert, Muscle Tone Normal Skin Exam: Normal Diagnostics - Laboratory Lab Results: UA 1+ esterace and blood, test negative. Complaint Female Dx - Course Course Of Treatment: cephalexin for possible UTI. Culture sent. Self collected BD affirm and will await results. - Differential Dx/Diagnosis Differential Diagnosis/HQI/PQRI: Urinary Tract Infection, Other - reflux, gastritis, vaginitis. Provider Diagnosis: UTI (urinary tract infection) Discharge ED - Sign-Out/Discharge Documenting (check all that apply): Patient Departure All imaging exams completed and their final reports reviewed: No Studies - Discharge Plan Condition: Stable Disposition: HOME Prescriptions: Cephalexin CAP* [Keflex 500 CAP*] 500 mg PO BID #14 cap Patient Education Materials: Urinary Tract Infection in Women (ED) Referrals: Ellie Coleman NP [Primary Care Provider] - Additional Instructions: Begin cephalexin for possible urinary infection. Ensure high intake of fluids. Schedule a visit with your primary doctor to review continued stomach upset and vomiting despite use of nexium. You will be notified if the vaginal swab shows an infection needing treatment. - Billing Disposition and Condition Condition: STABLE Disposition: Home
[2019-04-15] MEDS ORDERED: Cephalexin CAP* 500 MG PO ONE (21:24)
--- NOTE | 2019-04-17 19:16 | UC ---
- Progress Note Progress Note: please notify pt NO UTI STOP antibiotic follow up with PCP if still symptomatic Course/Dx - Diagnoses Provider Diagnoses: UTI (urinary tract infection) Discharge ED - Sign-Out/Discharge Documenting (check all that apply): Post-Discharge Follow Up All imaging exams completed and their final reports reviewed: No Studies - Discharge Plan Condition: Stable Disposition: HOME Prescriptions: Cephalexin CAP* [Keflex 500 CAP*] 500 mg PO BID #14 cap Patient Education Materials: Urinary Tract Infection in Women (ED) Referrals: Ellie Coleman NP [Primary Care Provider] - Additional Instructions: Begin cephalexin for possible urinary infection. Ensure high intake of fluids. Schedule a visit with your primary doctor to review continued stomach upset and vomiting despite use of nexium. You will be notified if the vaginal swab shows an infection needing treatment. - Billing Disposition and Condition Condition: STABLE Disposition: Home
== END 2019-04-15 21:55 | disposition home or self-care (01) ==
LOC: UCEAST 20:30
DX: N39.0 Urinary tract infection, site not specified (principal); K21.9 Gastro-esophageal reflux disease without esophagitis; F41.9 Anxiety disorder, unspecified; D50.9 Iron deficiency anemia, unspecified; F17.210 Nicotine dependence, cigarettes, uncomplicated
CPT/HCPCS: 81003; 81025; 87086; 87480; 87510; 87660; 99212; A9270-GY; G0463

== ENCOUNTER 2019-04-21 19:30 | Emergency (ER) | payer OTHER ==
[2019-04-21 20:06] VITALS: BP 131/80
--- NOTE | 2019-04-21 20:33 | UC ---
Complaint Female HPI - HPI Summary HPI Summary: WORSENING PAIN AND BURNING WITH URINATION--+VAGINAL DISCHARGE----REFUSED PELVIC EXAM AT LAST VISIT WILL CONSENT TODAY, FEELS FATIGUED, HAS STOMACH ACHE - History Of Current Complaint Chief Complaint: UCAbdominalPain Stated Complaint: ABDOMINAL PAIN Time Seen by Provider: 04/21/19 20:13 Hx Obtained From: Patient Hx Last Menstrual Period: 04/06/19 ?: No Onset/Duration: Gradual Onset, Lasting Days, Still Present, Worse Since - TODAY Timing: Constant Pain Intensity: 9 Pain Scale Used: 0-10 Numeric Character: Burning Aggravating Factor(s): Urination Alleviating Factor(s): Nothing Associated Signs And Symptoms: Positive: Vaginal Discharge - Allergies/Home Medications Allergies/Adverse Reactions: Allergies Allergy/AdvReac Type Severity Reaction Status Date / Time No Known Allergies Allergy Verified 04/21/19 20:06 PMH/Surg Hx/FS Hx/Imm Hx Previously Healthy: No GI/ History: Gastroesophageal Reflux Psychological History: Anxiety, Depression Other History Of: Negative For: Anticoagulant Therapy - Surgical History Surgical History: None - Family History Known Family History: Positive: None, Hypertension - GF, Diabetes - GF Negative: Renal Disease - Social History Occupation: Unemployed Lives: With Family Alcohol Use: None Substance Use Type: Marijuana Substance Use Comment - Amount & Last Used: 2x/day Smoking Status (MU): Current Every Day Smoker Type: Cigarettes Amount Used/How Often: 2-3 cig/day Household Exposure Type: Cigarettes Review of Systems All Other Systems Reviewed And Are Negative: Yes Constitutional: Positive: Fatigue Skin: Positive: Negative Eyes: Positive: Negative ENT: Positive: Negative Respiratory: Positive: Negative Cardiovascular: Positive: Negative Gastrointestinal: Positive: Abdominal Pain, Nausea Genitourinary: Positive: Dysuria, Frequency, Urgency, Vaginal/Penile Discharge Motor: Positive: Negative Neurovascular: Positive: Negative Musculoskeletal: Positive: Negative Neurological: Positive: Negative Psychological: Positive: Negative Is Patient Immunocompromised?: No Physical Exam Triage Information Reviewed: Yes Appearance: Well-Appearing, No Pain Distress, Obese Vital Signs: Initial Vital Signs Temp 97.9 F 04/21/19 20:02 Pulse 86 04/21/19 20:02 Resp 18 04/21/19 20:02 BP 131/80 04/21/19 20:02 Pulse Ox 100 04/21/19 20:02 Vital Signs Reviewed: Yes Eye Exam: Normal Eyes: Positive: Conjunctiva Clear ENT Exam: Normal ENT: Positive: Normal ENT inspection, Hearing grossly normal. Negative: Trismus , Muffled voice, Hoarse voice Neck exam: Normal Neck: Positive: Supple, Nontender, No Lymphadenopathy Respiratory Exam: Normal Respiratory: Positive: Chest non-tender, Lungs clear, Normal breath sounds, No respiratory distress, No accessory muscle use Cardiovascular Exam: Normal Cardiovascular: Positive: RRR, No Murmur, Pulses Normal, Brisk Capillary Refill Abdominal Exam: Normal Abdomen Description: Positive: No Organomegaly, Soft, Other: - suprapubic tenderness. Negative: CVA Tenderness (R), CVA Tenderness (L), Distended, Guarding Bowel Sounds: Positive: Present Pelvic Exam: Positive: External Exam Normal, Speculum Exam Normal, Bimanual Exam Normal, No Cerv. Motion Tender, No Masses. Negative: Tender w/ Cervical Motion, Tender Adnexa, Tender Uterus, Ulcers Musculoskeletal Exam: Normal Musculoskeletal: Positive: Strength Intact, ROM Intact, No Edema Neurological Exam: Normal Neurological: Positive: Alert, Muscle Tone Normal Psychological Exam: Normal Skin Exam: Normal Complaint Female Dx - Course Course Of Treatment: i am recommending patient to go to ED for definitive diagnostic work up---she is not sure if she is going to go or not---instructions given for follow up on Tuesday should she not go to the ED for further care - Differential Dx/Diagnosis Provider Diagnosis: Pain in the abdomen, Dysuria Discharge ED - Sign-Out/Discharge Documenting (check all that apply): Patient Departure All imaging exams completed and their final reports reviewed: No Studies - Discharge Plan Condition: Stable Disposition: HOME-RECOMMEND TO ED Patient Education Materials: Ibuprofen (By mouth), Ovarian Cyst (ED), Acute Abdominal Pain (ED) [facility] - 2 Days - Billing Disposition and Condition Condition: STABLE Disposition: Home-Recommend to ED
[2019-04-23 13:44] LABS: Chlamydia trachomatis NAA Negative (Negative); Neisseria gonorrhoeae (GC) NAA Negative (Negative)
--- NOTE | 2019-04-23 15:13 | UC ---
- Progress Note Progress Note: Affirm positive for yeast Rx for diflucan sent Course/Dx - Diagnoses Provider Diagnoses: Pain in the abdomen, Dysuria Discharge ED - Sign-Out/Discharge Documenting (check all that apply): Post-Discharge Follow Up All imaging exams completed and their final reports reviewed: No Studies - Discharge Plan Condition: Stable Disposition: HOME-RECOMMEND TO ED Prescriptions: Fluconazole 150 MG TAB* [Diflucan 150 MG TAB*] 150 mg PO ONCE #2 tablet Patient Education Materials: Ibuprofen (By mouth), Ovarian Cyst (ED), Acute Abdominal Pain (ED) Referrals: [facility] [Outside] - 2 Days - Billing Disposition and Condition Condition: STABLE Disposition: Home-Recommend to ED
== END 2019-04-21 21:30 | disposition home health service (06) ==
LOC: UCEAST 19:30
DX: R10.9 Unspecified abdominal pain (principal); R30.0 Dysuria; F17.210 Nicotine dependence, cigarettes, uncomplicated
CPT/HCPCS: 81003; 84702; 87086; 87480; 87491; 87510; 87591; 87661; 99212; G0463